=== PATIENT | male | born 1990 | race Caucasian/White ===

== ENCOUNTER → 2019-11-27 13:54 | Outpatient (CLI) | payer OTHER, SELFPAY ==
[2015-06-12 00:54] VITALS: BMI 30.1
[2019-11-27 17:44] LABS: Absolute Lymphocyte Count 3.22 X10^3/uL (0.83-4.51); Absolute Neutrophil Count 5.8 X10^3/uL (2.0-7.7); Basophil# 0.05 X10^3/uL; Basophil% 0.5 % (0-1); Eosinophil# 0.09 X10^3/uL; Eosinophils% 0.9 % (0-5); Hematocrit 49.8 % (40-54); Hemoglobin 16.2 g/dL (13.0-16.5); Lymphocyte # 3.22 X10^3/ul (4.0); Lymphocyte % 33.3 % (19-41); Mean Corp Hgb Conc 32.5 g/dL (32-36); Mean Corpuscular Hgb 27.9 pg (27.0-32.0); Mean Corpuscular Volume 85.9 fL (80-94); Mean Platelet Vol. 10.3 fl (6.2-12.0); Monocyte# 0.52 X10^3/uL; Monocyte% 5.4 % (0-10); NRBC Flagged by Analyzer 0 % (0-5); Neutrophil # 5.76 X10^3/uL (2.7-7.7); Neutrophil % 59.7 % (47-70); Platelet Count 292 K/mm3 (150-450); RBC Distribution Width CV 13.1 % (11.6-14.6); RBC Distribution Width SD 40.3 fl (35.1-43.9); White Blood Count 9.7 K/mm3 (4.4-11.0)
[2019-11-27 18:17] LABS: ALB/GLOB Ratio 1.3 RATIO (0.9-2.4); AST(SGOT) 29 U/L (15-37); Alanine Aminotransfer ALT/SGPT 67 U/L (16-61); Albumin, Serum 4.3 g/dL (3.2-5.0); Alkaline Phosphatase 69 U/L (45-117); Anion Gap 8 (5-15); BUN 17 mg/dL (7-18); BUN/Creat Ratio 19.6 RATIO (10-20); Calcium,Total 9.1 mg/dL (8.5-10.1); Chloride 102 mmol/L (98-107); Cholesterol 232 mg/dL (200); Creatinine, Serum 0.87 mg/dL (0.70-1.30); EST Glomerular Filtration Rate 111 mL/min (>60); Est Glom Filt Rate - Afr Amer 134 mL/min (>60); Globulin 3.4 g/dL (2.2-4.2); Glucose 164 mg/dL (74-106); High Density Lipoprotein 33 mg/dL; Lipase 130 U/L (73-393); Potassium 3.9 mmol/L (3.5-5.1); Protein, Total 7.7 g/dL (6.4-8.2); Sodium Level 138 mmol/L (136-145); Thyroid Stim Hormone (TSH) 1.14 uIU/mL (0.358-3.74); Triglycerides 224 mg/dL; Very Low Density Lipoprotein 45 mg/dL (5-40)
[2019-11-29 20:07] LABS: Endomysial Antibody IgA Negative (Negative)
[2019-11-30 01:44] LABS: Deamidated Gliadin IgA 2 units (0-19); Deamidated Gliadin IgG 2 units (0-19); Immunoglobulin A 203 mg/dL (90-386); t-Transglutaminase IgA <2 U/mL (0-3)
== END ==
PROVIDERS: PCP Family Medicine; Referring Provider Family Medicine; Visit Provider Family Medicine
DX: E11.65 Type 2 diabetes mellitus with hyperglycemia (principal); R19.7 Diarrhea, unspecified
CPT/HCPCS: 36415; 80053; 80061; 82784; 83516; 83690; 84443; 85025; 86255

== ENCOUNTER 2019-12-19 08:32 | Outpatient (RCR) | payer OTHER, SELFPAY | END 2019-12-19 23:59 | disposition home or self-care (01) | LOC: DC 08:32 | PROVIDERS: PCP Family Medicine; Visit Provider Family Medicine | DX: Z71.3 Dietary counseling and surveillance (principal); E11.65 Type 2 diabetes mellitus with hyperglycemia | CPT/HCPCS: G0108 ==

== ENCOUNTER → 2019-12-26 11:21 | Outpatient (CLI) | payer OTHER, SELFPAY ==
[2015-06-12 00:54] VITALS: BMI 30.1
[2019-12-26 12:50] LABS: Cholesterol 164 mg/dL (200); High Density Lipoprotein 37 mg/dL; Triglycerides 120 mg/dL; Very Low Density Lipoprotein 24 mg/dL (5-40)
== END ==
PROVIDERS: PCP Family Medicine; Referring Provider Family Medicine; Visit Provider Family Medicine
DX: Z00.00 Encounter for general adult medical examination without abnormal findings (principal)
CPT/HCPCS: 36415; 80061

== ENCOUNTER → 2020-04-11 10:39 | Outpatient (CLI) | payer OTHER, SELFPAY ==
[2015-06-12 00:54] VITALS: BMI 30.1
[2020-04-11 13:23] LABS: Anion Gap 9 (5-15); BUN 19 mg/dL (7-18); BUN/Creat Ratio 24.3 RATIO (10-20); Calcium,Total 9.2 mg/dL (8.5-10.1); Chloride 106 mmol/L (98-107); Cholesterol 151 mg/dL (200); Creatinine, Serum 0.78 mg/dL (0.70-1.30); EST Glomerular Filtration Rate 125 mL/min (>60); Est Glom Filt Rate - Afr Amer 151 mL/min (>60); Glucose 99 mg/dL (74-106); High Density Lipoprotein 38 mg/dL; Potassium 3.7 mmol/L (3.5-5.1); Sodium Level 140 mmol/L (136-145); Triglycerides 158 mg/dL; Very Low Density Lipoprotein 32 mg/dL (5-40)
== END ==
PROVIDERS: PCP Family Medicine; Referring Provider Family Medicine; Visit Provider Family Medicine
DX: E11.65 Type 2 diabetes mellitus with hyperglycemia (principal)
CPT/HCPCS: 36415; 80048; 80061

== ENCOUNTER → 2021-01-22 10:11 | Outpatient (CLI) | payer OTHER, SELFPAY ==
[2021-01-22 12:38] LABS: Anion Gap 8 (5-15); BUN 14 mg/dL (7-18); BUN/Creat Ratio 20.2 RATIO (10-20); Chloride 102 mmol/L (98-107); Cholesterol 195 mg/dL (200); Creatinine, Serum 0.69 mg/dL (0.70-1.30); EST Glomerular Filtration Rate 142 mL/min (>60); Est Glom Filt Rate - Afr Amer 172 mL/min (>60); Glucose 88 mg/dL (74-106); High Density Lipoprotein 42 mg/dL; Potassium 3.8 mmol/L (3.5-5.1); Sodium Level 139 mmol/L (136-145); Triglycerides 88 mg/dL; Very Low Density Lipoprotein 18 mg/dL (5-40)
[2021-01-22 12:42] LABS: Hemoglobin A1c 5.3 % (3.8-5.6)
== END ==
PROVIDERS: PCP Family Medicine; Referring Provider Family Medicine; Visit Provider Family Medicine
DX: E11.65 Type 2 diabetes mellitus with hyperglycemia (principal)
CPT/HCPCS: 36415; 80048; 80061; 83036

== ENCOUNTER → 2021-03-03 15:07 | Outpatient (CLI) | payer OTHER, SELFPAY | PROVIDERS: PCP Family Medicine; Referring Provider Family Medicine; Visit Provider Registered Nurse | DX: J06.9 Acute upper respiratory infection, unspecified (principal) | CPT/HCPCS: 87633; 87635; U0005; U0003 ==

== ENCOUNTER → 2021-03-11 | Outpatient (CLI) | payer OTHER, SELFPAY | END | disposition home or self-care (01) | LOC: LABSPEC 17:22 | PROVIDERS: PCP Family Medicine; Visit Provider Nurse Practitioner Family | DX: U07.1 COVID-19 (principal) | CPT/HCPCS: 87635; U0005; U0003 ==

== ENCOUNTER → 2021-07-22 | Outpatient (CLI) | payer OTHER, SELFPAY ==
[2021-07-22 13:06] LABS: Anion Gap 6 (5-15); BUN 18 mg/dL (7-18); Calcium,Total 8.4 mg/dL (8.5-10.1); Chloride 107 mmol/L (98-107); Cholesterol 183 mg/dL (200); EST Glomerular Filtration Rate 93 mL/min (>60); Est Glom Filt Rate - Afr Amer 113 mL/min (>60); Glucose 124 mg/dL (74-106); High Density Lipoprotein 35 mg/dL; Potassium 3.7 mmol/L (3.5-5.1); Sodium Level 141 mmol/L (136-145); Triglycerides 63 mg/dL; Very Low Density Lipoprotein 13 mg/dL (5-40)
== END | disposition home or self-care (01) ==
LOC: MFPLAB 09:34
PROVIDERS: PCP Family Medicine; Visit Provider Family Medicine
DX: E11.9 Type 2 diabetes mellitus without complications (principal)
CPT/HCPCS: 36415; 80048; 80061

== ENCOUNTER 2021-10-23 07:30 | Outpatient (RCR) | payer OTHER, SELFPAY ==
--- NOTE | 2021-09-23 07:49 | HP.PTEVAL ---
Patient's Visit Information JOCELINE FALCON is a 31 year old M referred to Physical Therapy by MARTIN Kelly with a diagnosis of Lumbar Strain. Date of Evaluation: 09/23/21 Physical Therapist: Rama Puga DPT - Visit Plan Frequency: 3x /Week Duration: 4 Weeks Plan: Focus on LE and Core strength/stabilization in a neutral spine with progression to lifting mechanics for employment- [place] of modality. HEP Given IE: TA Contraction and Hamstring Stretch 90/90 and Postural Education - Subjective About a 6 weeks ago he was lifting things at work- went to [facility]- healed up within a weak and was having no problems. Last week it started building slowly and he was taking lots of Tylenol and Ibuprofen and it continued to get worse. He has been on vacation this week and has some pain but its not as bad. 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 Pain is located in the lower right back around the belt line and a little lower. When he first starts to bed its painful but then its a dull constant tingling. Worst: 6/10 Agg: lifting- work. Eases: pain medication Best:0/10- doing nothing. The ergonomics of his car seat really bother him. Pain does radiate down the right leg to his toes when its really bad- N/T in the toes- pain is localized to the hip. They did an x-ray the first time but no MRI. No loss or change in bowel or bladder. [facility] has restricted him to #10- they will have light duty for him-goes back to work on Tuesday. Sleep: not currently- back and side sleeper. He has never had back issues before. He is not very active outside of work. No current exercise program. Wants to get on an exercise program but is nervous of the pains. PMHx: Pre DM, high cholesterol. Meds: Metformin, Simvastatin, Flexural (not taking it) - Objective Posture: FH, RS- can correct but does not maintain. Gait: no deviation noted good arm swing and trunk rotation. HR/TR: able without UE A. SLS: 10 sec with moderate sway and increased hip drop. ROM: WFL in all planes- pa in with Side bend right, extension and 30 degrees of forward flexion. Sensation: Decreased sensation in right LE with exception of top of foot. Reflex: Patellar 2+. Strength: Core: fair minus, Hip: 4/5- no pain with exception of ER reports cramping and significant pain, Knee: 5/5 Ankle: 5/5. Flex: HS: severe, Gastroc: severe, Piriformis: moderate. Special Test: Prone lying: increases symptoms - Special Tests L/S Slump test right side: Positive L/S Left Straight Leg Raise: Negative L/S Right Straight Leg Raise: Positive - Balance/Special Test Scores Oswestry Low Back Score: 4 - Goals Goal 1:: Patient will be I with HEP and progression Goal Time Frame: 4-6 Weeks Goal 2:: Patient will maintain proper posture t/o tx session to demo increased core s/s Goal Time Frame: 4-6 Weeks Goal 3:: Patient will report no radicular s/s for 1 week Goal Time Frame: 4-6 Weeks Goal 4:: Patient will report 80% improvement Goal Time Frame: 4-6 Weeks - Rehabilitation Potential Physical Therapy Diagnosis: Patient presents with hypomobility- he has decreased pain free ROM, LE and core strength/stabilization, flex and muscular endurance leading to poor posture, lifting mechanics and pain with ADL's. - Anticipated Interventions Patient/Client Instruction: Educate patient on: Benefits of Fitness Program Therapeutic Exercise to Include: Strength training, Endurance training, Balance training, Coordination, Agility training, Body mechanics, Postural training, Flexibilty training, Gait and locomotor training, Neuromotor development, Dynamic Lumbar Stabilization, Scapular Strength/Stabilization For the Purpose of:: To improve muscle performance and motor function TENS: Yes Cryotherapy (ice pack, ice massage): Yes Thermo therapy (hot pack): Yes Ultrasound (thermal/non thermal): Yes Thank you for the opportunity to evaluate your patient. For Medicare and Medicare HMO plans, please review the plan of care and approve it. It will need to be FAXED BACK to us at [phone] for Medicare purposes. For Medicare only, by signing this I certify the plan of care. Please let me know if there are questions or concerns regarding this plan of care. Physician Signature: Date:
--- NOTE | 2021-10-23 08:17 | HP.PTDCSUM ---
It has been my pleasure to treat JOCELINE FALCON referred by MARTIN Kelly, with the diagnosis of Lumbar Strain for a total of 9 visit(s). Discharge Date: Please see the following information for a summary of their discharge status. Subjective: Patient reports that he has been released back to work- he has no increase in sharp pains but he does have dull pains- able to recognize and change positions before it hurts to bad. He is trying to modify his work as much as possible. He does not feel that he needs to continue PT- but he has learned a lot of exercises that he can continue. LBP Pain Intensity (Out of 10): 0 % Improvement: 90 Objective/Function: Posture: Fair throughout. Gait: no deviation noted good arm swing and trunk rotation. HR/TR: able without UE A. SLS: 30 sec. ROM: WFL in all planes-no pain. Sensation: WLF Reflex: Patellar 2+. Strength: Core: fair, Hip: 4+/5- no pain with exception of ER reports cramping and mild pain, Knee: 5/5 Ankle: 5/5. Flex: HS: severe, Gastroc: severe, Piriformis: moderate. - Special Tests. L/S Slump test right side: Positive. L/S Left Straight Leg Raise: Negative. L/S Right Straight Leg Raise: Positive Goal 1:: Patient will be I with HEP and progression Goal Progress: Goal Met Goal 2:: Patient will maintain proper posture t/o tx session to demo increased core s/s Goal Progress: Progressing Goal 3:: Patient will report no radicular s/s for 1 week Goal Progress: Goal Met Goal 4:: Patient will report 80% improvement Goal Progress: Goal Met Plan: Focus on LE and Core strength/stabilization in a neutral spine with progression to lifting mechanics for employment- [place] of modality If there are questions or concerns regarding this patient's physical therapy, please feel free to call me at [phone]. Thank you for the referral of this patient. Sincerely, Rama Puga, DPT Balance/Gait/Functional tests - Balance/Special Test Scores Oswestry Low Back Score: 3
== END 2021-10-23 09:24 | disposition home or self-care (01) ==
LOC: PT 07:30
PROVIDERS: PCP Family Medicine; Referring Provider Physician Assistant; Visit Provider Physician Assistant
DX: S39.012D Strain of muscle, fascia and tendon of lower back, subsequent encounter (principal); X58.XXXD Exposure to other specified factors, subsequent encounter
CPT/HCPCS: 97014; 97110; 97162; 97164; G0283

== ENCOUNTER → 2022-01-20 | Outpatient (CLI) | payer OTHER, SELFPAY ==
[2022-01-20 12:30] LABS: Anion Gap 4 (5-15); BUN 15 mg/dL (7-18); Calcium,Total 9.3 mg/dL (8.5-10.1); Chloride 104 mmol/L (98-107); Cholesterol 191 mg/dL (200); Creatinine, Serum 0.83 mg/dL (0.70-1.30); EST Glomerular Filtration Rate 115 mL/min (>60); Est Glom Filt Rate - Afr Amer 139 mL/min (>60); Glucose 122 mg/dL (74-106); High Density Lipoprotein 40 mg/dL; Potassium 5.4 mmol/L (3.5-5.1); Sodium Level 137 mmol/L (136-145); Triglycerides 130 mg/dL; Very Low Density Lipoprotein 26 mg/dL (5-40)
== END | disposition home or self-care (01) ==
LOC: MFPLAB 10:32
PROVIDERS: PCP Family Medicine; Referring Provider Family Medicine; Visit Provider Family Medicine
DX: E11.9 Type 2 diabetes mellitus without complications (principal)
CPT/HCPCS: 36415; 80048; 80061

== ENCOUNTER → 2022-07-21 | Outpatient (CLI) | payer OTHER, SELFPAY ==
[2022-07-21 12:47] LABS: Anion Gap 4 (5-15); BUN 22 mg/dL (7-18); BUN/Creat Ratio 26.6 RATIO (10-20); Calcium,Total 8.9 mg/dL (8.5-10.1); Chloride 107 mmol/L (98-107); Cholesterol 216 mg/dL (200); Creatinine, Serum 0.83 mg/dL (0.70-1.30); EST Glomerular Filtration Rate 115 mL/min (>60); Est Glom Filt Rate - Afr Amer 139 mL/min (>60); Glucose 127 mg/dL (74-106); High Density Lipoprotein 35 mg/dL; Potassium 4.1 mmol/L (3.5-5.1); Sodium Level 138 mmol/L (136-145); Triglycerides 112 mg/dL; Very Low Density Lipoprotein 22 mg/dL (5-40)
== END | disposition home or self-care (01) ==
LOC: MFPLAB 09:29
PROVIDERS: PCP Family Medicine; Visit Provider Family Medicine
DX: E11.9 Type 2 diabetes mellitus without complications (principal)
CPT/HCPCS: 36415; 80048; 80061

== ENCOUNTER → 2022-12-24 | Outpatient (CLI) | payer OTHER, SELFPAY ==
--- NOTE | 2022-12-24 13:38 | RAD_ITS ---
INDICATION: DEGENERATIVE ARTHRITIS EXAMINATION/TECHNIQUE: X-RAY - XR Spine Lumbar 2 or 3 Views COMPARISON: FINDINGS: VERTEBRAE: Preserved vertebral body height. No fracture. No spondylolisthesis. Preservation of the normal lumbar lordosis. No significant facet arthropathy. DISCS: Disc spaces are maintained. INCLUDED ABDOMEN: Included bowel gas pattern is non-obstructive. RAD/Lumbar Spine 2 or 3 Views IMPRESSION: No evidence of lumbar spinal fracture or spondylolisthesis. Electronically Signed: David Ojeda MD at 11:20 EDT ,
--- NOTE | 2022-12-24 13:40 | RAD_ITS ---
EXAM: XR RIGHT FOOT COMPLETE, 3 OR MORE VIEWS CLINICAL INDICATION: right great toe injury TECHNIQUE: Frontal, lateral and oblique views of the right foot. COMPARISON: No relevant prior studies available. FINDINGS: BONES/JOINTS: Fracture at the base of the first proximal phalanx apparently with intra-articular extension. Preservation of the joint space. No sclerotic or destructive changes observed. SOFT TISSUES: Soft tissue swelling of the great toe. No radiopaque foreign body. RAD/Foot min 3 Views IMPRESSION: Fracture at the base of the first proximal phalanx apparently with intra-articular extension. Electronically Signed: Sixto Mcclain DO at 23:48 EDT ,
== END | disposition home or self-care (01) ==
LOC: MTRAD 13:35
PROVIDERS: PCP Family Medicine; Referring Provider Family Medicine; Visit Provider Family Medicine
DX: S90.921A Unspecified superficial injury of right foot, initial encounter (principal); M47.9 Spondylosis, unspecified
CPT/HCPCS: 72100; 73630

== ENCOUNTER → 2023-01-05 | Outpatient (CLI) | payer OTHER, SELFPAY ==
[2023-01-05 13:20] LABS: ALB/GLOB Ratio 1.3 RATIO (0.9-2.4); AST(SGOT) 18 U/L (15-37); Alanine Aminotransfer ALT/SGPT 46 U/L (16-61); Albumin, Serum 4.3 g/dL (3.2-5.0); Alkaline Phosphatase 68 U/L (45-117); Anion Gap 4 (5-15); BUN 16 mg/dL (7-18); BUN/Creat Ratio 19.5 RATIO (10-20); Calcium,Total 9.6 mg/dL (8.5-10.1); Chloride 106 mmol/L (98-107); Cholesterol 232 mg/dL (200); Creatinine, Serum 0.82 mg/dL (0.70-1.30); EST Glomerular Filtration Rate 116 mL/min (>60); Est Glom Filt Rate - Afr Amer 140 mL/min (>60); Globulin 3.4 g/dL (2.2-4.2); Glucose 141 mg/dL (74-106); High Density Lipoprotein 41 mg/dL; Potassium 4.7 mmol/L (3.5-5.1); Protein, Total 7.7 g/dL (6.4-8.2); Sodium Level 140 mmol/L (136-145); Triglycerides 149 mg/dL; Very Low Density Lipoprotein 30 mg/dL (5-40)
== END | disposition home or self-care (01) ==
LOC: MFPLAB 09:57
PROVIDERS: PCP Family Medicine; Visit Provider Family Medicine
DX: E11.69 Type 2 diabetes mellitus with other specified complication (principal)
CPT/HCPCS: 36415; 80053; 80061

== ENCOUNTER → 2023-01-08 | Outpatient (CLI) | payer OTHER, SELFPAY ==
--- NOTE | 2023-01-08 09:05 | MRI_ITS ---
INDICATION: right sided low back pain, radiculopathy rt leg EXAMINATION: MRI - MR Spine Lumbar W/O Contrast TECHNIQUE: Multiplanar and multisequence MR images of the lumbar spine. IV Contrast Dosage and Agent: None. COMPARISON: None. FINDINGS: VERTEBRAE: Vertebral body heights are preserved. Normal vertebral bodies and posterior elements. VERTEBRAL ALIGNMENT: No spondylolisthesis. There is preservation of the normal lumbar lordosis. CORD: Normal position and signal intensity of the conus medullaris. L1/L2: Normal disc height and morphology. Normal spinal canal, lateral recesses and neuroforamina. L2/L3: Normal disc height and morphology. Normal spinal canal, lateral recesses and neuroforamina. L3/L4: Normal disc height and morphology. Normal spinal canal, lateral recesses and neuroforamina. L4/L5: Moderate disc desiccation, small central disc herniation, mild bilateral facet arthropathy, mild bilateral neural foraminal encroachment. L5/S1: Normal disc height and morphology. Normal spinal canal, lateral recesses and neuroforamina. SOFT TISSUES: Unremarkable. MRI/Spine Lumbar (Routine) IMPRESSION: Small central disc herniation L4-5. Additional findings above. Electronically Signed: David Ojeda MD at 12:08 EDT ,
== END | disposition home or self-care (01) ==
PROVIDERS: PCP Family Medicine; Referring Provider Orthopaedic Surgery; Visit Provider Orthopaedic Surgery
DX: M51.27 Other intervertebral disc displacement, lumbosacral region (principal)
CPT/HCPCS: 72148

== ENCOUNTER → 2023-07-06 | Outpatient (CLI) | payer OTHER, SELFPAY ==
[2023-07-06 12:53] LABS: Absolute Lymphocyte Count 2.56 X10^3/uL (0.83-4.51); Absolute Neutrophil Count 5.1 X10^3/uL (2.0-7.7); Basophil# 0.05 X10^3/uL; Basophil% 0.6 % (0-1); Eosinophil# 0.07 X10^3/uL; Eosinophils% 0.8 % (0-5); Hematocrit 47.9 % (40-54); Hemoglobin 15.7 g/dL (13.0-16.5); Lymphocyte # 2.56 X10^3/ul (0.83-4.51); Lymphocyte % 30.7 % (19-41); Mean Corp Hgb Conc 32.8 g/dL (32-36); Mean Corpuscular Hgb 28.8 pg (27.0-32.0); Mean Corpuscular Volume 87.9 fL (80-94); Mean Platelet Vol. 10.4 fl (6.2-12.0); Monocyte# 0.52 X10^3/uL; Monocyte% 6.2 % (0-10); NRBC Flagged by Analyzer 0 % (0-5); Neutrophil # 5.11 X10^3/uL (2.7-7.7); Neutrophil % 61.5 % (47-70); Platelet Count 262 K/mm3 (150-450); RBC Distribution Width CV 13.2 % (11.6-14.6); RBC Distribution Width SD 42.3 fl (35.1-43.9); Red Blood Count 5.45 M/mm3 (4.6-6.2); White Blood Count 8.3 K/mm3 (4.4-11.0)
[2023-07-06 13:38] LABS: ALB/GLOB Ratio 1.4 RATIO (0.9-2.4); AST(SGOT) 14 U/L (15-37); Alanine Aminotransfer ALT/SGPT 31 U/L (16-61); Albumin, Serum 4.2 g/dL (3.2-5.0); Alkaline Phosphatase 55 U/L (45-117); Anion Gap 4 (5-15); BUN 13 mg/dL (7-18); BUN/Creat Ratio 15.3 RATIO (10-20); Chloride 109 mmol/L (98-107); Cholesterol 190 mg/dL (200); Creatinine, Serum 0.85 mg/dL (0.70-1.30); EST Glomerular Filtration Rate 110 mL/min (>60); Est Glom Filt Rate - Afr Amer 134 mL/min (>60); Globulin 3.1 g/dL (2.2-4.2); Glucose 146 mg/dL (74-106); High Density Lipoprotein 31 mg/dL; Potassium 4.3 mmol/L (3.5-5.1); Protein, Total 7.3 g/dL (6.4-8.2); Sodium Level 141 mmol/L (136-145); Triglycerides 124 mg/dL; Very Low Density Lipoprotein 25 mg/dL (5-40)
== END | disposition home or self-care (01) ==
LOC: MFPLAB 10:04
PROVIDERS: PCP Family Medicine; Visit Provider Family Medicine
DX: E11.69 Type 2 diabetes mellitus with other specified complication (principal); M54.9 Dorsalgia, unspecified
CPT/HCPCS: 36415; 80053; 80061; 83036; 85025

== ENCOUNTER → 2023-07-08 | Outpatient (CLI) | payer OTHER, SELFPAY ==
[2023-07-08 15:23] LABS: Microalbumin,Random Urine 13.6 mg/L (NO RANGE EST.); Microalbumin:Creatinine Ratio 10.4 mg/g CRE (<30 mg/g CRE)
== END | disposition home or self-care (01) ==
LOC: MFPLAB 10:20
PROVIDERS: PCP Family Medicine; Visit Provider Family Medicine
DX: E11.69 Type 2 diabetes mellitus with other specified complication (principal); M54.9 Dorsalgia, unspecified
CPT/HCPCS: 82043; 82570

== ENCOUNTER 2023-07-19 05:33 | Inpatient (IN) | payer OTHER, SELFPAY ==
--- NOTE | 2023-07-08 07:05 | EKG12_ITS ---
Test Reason : PRE OP Blood Pressure : / mmHG Vent. Rate : 068 BPM Atrial Rate : 068 BPM P-R Int : 156 ms QRS Dur : 084 ms QT Int : 378 ms P-R-T Axes : 029 018 015 degrees QTc Int : 401 ms Normal sinus rhythm Normal ECG Confirmed by SANKET GILLIAM, BALTA ([id number]), graphic editor ASTRID DARLING ([id number]) on 07/11/2023 10:35:52 AM Referred By: Destin Delacruz Confirmed By:RAHAT COLES MD
[2023-07-08 08:22] LABS: Magnesium 2.4 mg/dL (1.6-2.6)
[2023-07-08 09:11] LABS: HIV - WCH Non-Reactive (Nonreactive); Hepatitis B Surface Antibody Non-Reactive; Hepatitis C Antibody Non-Reactive (Nonreactive)
[2023-07-09 07:09] LABS: Hepatitis A AB, Total Negative (Negative)
--- NOTE | 2023-07-15 13:10 | HP.PCM_ITS ---
History and Physical Add?Addendum [facility] Date of Service: 06/10/23 MR#: [id number] Acct: [id number] Name: JOCELINE FALCON Rep #: [id number] : 1990 Provider: Dr. Destin Delacruz DO Age/Sex: 33/M Location: [facility] [place] Status: Signed Intake Vital Signs 12/29/2307:30 Height 5 ft 10 in Intake Visit Reasons: LUMBAR SPINE Chief Complaint: low back Is patient in pain?: Yes (Low back) Pain scale (1-10): 4 Allergies Environmental Allergies: Uncoded [metal] Adverse Reaction (Verified 06/10/23 13:36) Rash Medications multivitamin 1 tab PO DAILY 12/28/22 [History Confirmed 06/10/23] metformin 500 mg tablet 500 mg PO 12/31/22 [History Confirmed 06/10/23] rosuvastatin 20 mg tablet 20 mg PO DAILY 02/11/23 [History Confirmed 06/10/23] meloxicam 7.5 mg tablet 7.5 mg PO QDAY 06/10/23 [History Confirmed 06/10/23] [facility] Medical History (Updated 06/10/23 @ 14:[address] Destin Delacruz DO) Closed fracture of one or more phalanges of right foot Lumbar strain Social History household members: family Smoking Status: Never smoker alcohol intake: never HPI LUMBAR SPINE Details: This documentation accurately reflects the service provided and the decisions made by me, Dr. Destin Delacruz DO 06/10/23 1329. Part of today?s visit was documented by Becka, acting as scribe. JOCELINE FALCON is a 33 year old M here today for follow up on low back pain. He complains of dull low back pain that does not go away. He is also experiencing right sided sciatic pain, numbness and tingling. He did see Dr. Lim and had a second low back injection at L4-L5 about four weeks ago. He did not do the sciatic injections this time he wanted him to do PT. He has been doing and working out 2-4 times per week. He reports no relief with this. He would like to discuss further options including surgery. He reports pain daily that is baseline 06/21. Joceline has been in therapy now for over a month and it is not helping his back at all in fact it actually making it worse. But has been doing his stretches and trying to work out. The pain in the low back has been unbearable. He states that when the pain is bad he goes to an 9/10 in severity. When its good the baseline is about 4/10 in severity. Unfortunately the 9 over 10 days are getting more and more frequent. He wishes to have something done permanently as he states that he cannot continue to live the way he does. On examination he has hardly any pain at all with extension but a lot of pain with flexion as we load the L4-5 disc. Neurologically he is intact with good motor strength of all the major muscle groups of both lower extremities. He has no long tract signs. I went back over his MRI scan that demonstrates the annular tear L4-5 and the desiccation of said disc. Luckily all his other discs are perfectly normal. We will schedule him for a 360 degree fusion at the L4-5 level. We will schedule him for 18 July. I will see him about 1 week before the surgery at preop here in the office. Coding Level of Care Code Off vis,est,level 3 Diagnoses Herniated nucleus pulposus, L4-5 M51.26
[2023-07-19] VITALS (12 sets, daily range): BP systolic 118–141; BP diastolic 64–91; PULSE 85–106; RESP 14–18; TEMP 36.6–37.4; O2SAT 93–100; BMI 31.3; BMI 31.2
--- NOTE | 2023-07-19 | DISC_PTH ---
PATIENT: JOCELINE FALCON LOC: [facility] U#:[id number] AGE/SX: 33/M ROOM: VT312 RE07/19/[address]: Dr. Belén Flores DO : 1990 BED: 1 DIS: 07/22/2023 SPEC #: [id number] RECD: 07/19/23 16:06 STATUS: FELICE REHAN #: [id number] RAMYA: 07/19/23 00:[address]: Destin Delacruz DEPT: SURGICAL PATHOLOGY RECD BY: Mikael Wright ENTERED: 07/20/23 07:49 SP TYPE: DISC OTHR DR: DO Dr. Sydni Sotomayor MD Dr. Paul Nielsen, MD Tissues: Intervertebral disc, NOS Procedures: Surgery Specimen Level III HEADER OPERATION: ERAS, 360 lumbar fusion L4-5 PRE-OP DIAGNOSIS: Herniated nucleus pulposus, L4-5 TISSUE SUBMITTED: L4-L5 disc MICROSCOPIC DIAGNOSIS L4-L5 disc: Fragments of fibrocartilaginous tissue with degenerative changes and bone. RACHEL/ 07/21/23 MICROSCOPIC DESCRIPTION Slides are reviewed. GROSS DESCRIPTION Received in fixative is one container labeled with the patient's name and designated L4-L5 disc. The specimen consists of multiple pieces of mcconnell indurated tissue measuring in aggregate 6.5 x 6.0 x 2.5cm. The largest piece measures 3.0cm in greatest dimension. Director [employer] tissue is submitted in two cassettes. RACHEL/ 07/20/2023 TC:5 CPT:98776
[2023-07-19] MEDS: Lactated Ringers 1,000 ML 15 ML IV (06:15)
[2023-07-19] MEDS: Acetaminophen 500 MG Tablet 1000 MG PO ×3 (06:16→21:52)
[2023-07-19] MEDS: Magnesium 1 GM over 15 mins IV (06:16)
[2023-07-19 07:09] LABS: Bedside Glucose 163 mg/dL (74-106)
[2023-07-19] MEDS: Cefazolin 2 GM in 0.9% Normal Saline (100mL Bag) 100 ML IV ×2 (07:50→11:52)
[2023-07-19] MEDS: Heparin 10,000 UNITS/10 ML Vial 10000 UNITS (08:50)
--- NOTE | 2023-07-19 10:20 | RAD_ITS ---
STUDY: X-RAY - LUMBAR SPINE REASON FOR EXAM: Male, 33 years old. 360 FUSION L4-5 TECHNIQUE: Single lateral view(s) of the lumbar spine were obtained. COMPARISON: None FINDINGS: The localization enhancement is seen anterior to the L4-L5 disc space level. RAD/Spine 1 View Any Level IMPRESSION: The localization instrument is seen anterior to the L4-L5 disc space level. Electronically Signed: Barrett Weber MD at 14:59 EDT ,
--- NOTE | 2023-07-19 11:25 | RAD_ITS ---
STUDY: X-RAY - LUMBAR SPINE REASON FOR EXAM: Male, 33 years old. 360 fusion L4-5 TECHNIQUE: One lateral view(s) of the lumbar spine were obtained. COMPARISON: None FINDINGS: The patient is status post anterior fusion at the L4-L5 level with prosthetic disc placement. RAD/Spine 1 View Any Level IMPRESSION: Status post anterior fusion at the L4-L5 level with prosthetic disc placement. Electronically Signed: Barrett Weber MD at 15:00 EDT ,
--- NOTE | 2023-07-19 11:30 | PCM.OPRPT ---
Report of Operation Description of Surgical Findings:: Preoperative diagnosis: Herniated disc with disc disruption syndrome L4-5 Postoperative diagnosis: Same Procedures: #1 anterior lumbar interbody fusion L4-5 CPT code 19125 #2 anterior spine plate L4-5 CPT code 03367/59 #3 insertion of anterior lumbar cage CPT code 44653 #4 bone marrow aspirate from right iliac crest CPT code 17267 #5 spongy bone allograft L4-5 CPT code 73928 Co-surgeons: Dr. Delacruz and Dr. Dominguez certified first assistant: Kirk from surgery CLIENT SOLUTIONS SPECIALIST Anesthesia: General endotracheal by [facility] EBL: 80 cc Drains: None Complications: None Procedure: Patient was placed in the supine position on the operating table. He was then placed under general endotracheal anesthesia. A Jay catheter was inserted. Neuromonitoring placed her leads on the patient. The abdomen was then prepped and draped in standard fashion. Through a small puncture incision placed a Jamshidi needle over the ASIS on the right side tamped into place and obtained 60 cc of bone marrow aspirate from the patient's crest. This was given to the tech in the room she was able to separate the stem cells from all the other cells via her send special centrifuge. The cells were concentrated about 10 times and given back to us in about 5 cc. The surgical approach is then described in Dr. Dominguez's operative summary. Once he had good exposure at L4-5, with x-ray confirmation, I removed the anterior annulus with a 10 blade. I then removed a nuclear strip when within the disc base with pituitary rongeurs bowl curettes and ring curettes. This was a long process I was finally able to remove most of the disc needed for a smaller cage. Using the ring curettes I removed all the cartilage off both endplates. I then cauterized the anterior longitudinal ligament above and below the disc space to make room for a plate. Our measurements were taken for a cage. We used the trials for that we found that a 14 mm small cage would be the right one for him. I then used first a 12 mm broach followed by 14 mm broach to repeatedly broach the endplates into bleeding endplates. The cage was then filled with spongy allograft it was then soaked in the patient's own concentrated stem cells and it was tamped into place and countersunk a couple of millimeters. A 27 mm plate was then centered and with me holding it in place Dr. Dominguez I used the awl to punch a hole first and do L4 followed by the insertion about 30 mm self-tapping screw. He is then put 1 diagonally across from it in the same fashion at the top of L5. He then used the awl to punch the next 2 holes and entered with 2 more 30 mm screws. The locking mechanisms were then activated. An amniotic membrane patch was placed directly over to prevent adhesions to the surrounding vessels. An intraoperative x-ray was taken that demonstrated excellent position of the plate the screws and the cage. The closure is then described in Dr. Dominguez's operative summary. This is the end of operative summary on Felix Pepper. This is Dr. Delacruz dictating.
--- NOTE | 2023-07-19 11:33 | RAD_ITS ---
STUDY: X-RAY - LUMBAR SPINE REASON FOR EXAM: Male, 33 years old. Lumbar 360 L4-5 TECHNIQUE: 1 view(s) of the lumbar spine were obtained. COMPARISON: None FINDINGS: The patient is status post anterior fusion at the L4-L5 level with prosthetic disc placement. The localization instrument is seen posterior to the L4-L5 level. RAD/Spine 1 View Any Level IMPRESSION: Status post anterior fusion at the L4-L5 level with prosthetic disc placement. The localization instrument is seen posterior to the L4-L5 level. Electronically Signed: Barrett Weber MD at 13:26 EDT ,
[2023-07-19] MEDS: THROMBIN (RECOMBINANT) 20,000 UNIT VIAL 20000 UNIT TOPICAL (13:13)
--- NOTE | 2023-07-19 14:27 | PCM.OPRPT ---
Report of Operation Description of Surgical Findings:: Preoperative diagnosis: Disc disruption syndrome L4-5 Postoperative diagnosis: Same Procedures: #1 posterior fusion L4-5 CPT code 40215 #2 internal fixation L4-5 CPT code 01119 #3 allograft bone L4-5 CPT code 41526 Surgeon: Dr. Delacruz Coastal Tug Mate: Yelena from surgery [employer] FOREMAN Anesthesia: General endotracheal by [facility] EBL: 60 cc Drains: None Complications: None Procedure: Once the anterior surgery was completely finished and the abdomen closed by Dr. Dominguez we then moved the patient onto the prone position on the Valeriy frame. After appropriate positioning with care to protect his bony prominences his genitalia his ulnar nerves of both elbows the brachial plexus bilaterally and the cervical spine and facial features the back was prepped and draped standard fashion. I then made a longitudinal incision centered over L4-5. Subcutaneous tissues were incised length of skin incision. I then elevated the paravertebral muscles on the right side off the lamina of L4 and the lamina of L5. An intraoperative x-ray was taken that confirmed that we were at the proper level. I then moved to the other side of the table and elevated the paravertebral muscles off the same lamina that is L4 and L5 on the left side I then put the self-retaining super slide retractors in place. I cauterized all soft tissues off of the lamina of 4 on both sides of the lamina 5 on both sides. The interspinous ligament between L4 and 5 was removed with double-action rongeurs and cautery. Measurements were taken for the spacer. We decided on a 12 mm spacer. I used the bur to bur the lamina of 4 on both sides of the lamina 5 on both sides. SPARC allograft was then placed over the lamina on both sides. The spacer itself was then tamped into place. Internal fixation device was then attached secured and the locking mechanisms activated. Note in the course of the case we thoroughly irrigated with copious amounts of sterile saline on a regular basis. I then closed the lumbar fascia using [id number] suture with #1 Vicryl followed by closure of subcutaneous tissues in layers with 0 Vicryl and 2-0 Vicryl in interrupted fashion and finally the skin was approximated using skin clips. Sterile dressings were applied. The patient was then recovered in the OR moved to his hospital bed and taken to recovery in satisfactory condition. This the end of operative summary on Felix Pepper. This is Dr. Delacruz dictating.
[2023-07-19 15:09] LABS: Bedside Glucose 185 mg/dL (74-106)
[2023-07-19] MEDS: Insulin Lispro 100 UNIT/ML INSULN.PEN SC ×2 (15:28→21:52)
--- NOTE | 2023-07-19 16:02 | OP.PCM_ITS ---
Report of Operation Date of Procedure: 07/19/23
--- NOTE | 2023-07-19 16:02 | PCM.OPRPT ---
Report of Operation Date of Procedure: 07/19/23 Pre-Operative Diagnosis: Herniated disc with disc disruption syndrome L4-5 Post-Operative Diagnosis: Same Surgery/Procedure Performed:: #1 anterior lumbar interbody fusion L4-5 CPT code 36045 #2 anterior spine plate L4-5 CPT code 82382/59 #3 insertion of anterior lumbar cage CPT code 48027 #4 bone marrow aspirate from right iliac crest CPT code 14381 #5 spongy bone allograft L4-5 CPT code 01722 Surgeon: Co-surgeon, Dr. Delacruz, Dr. Dominguez Type of Anesthesia: General Estimated Blood Loss (mL): 80 Description of Procedure: HPI: Patient is a 33-year-old male with herniated disc at the L4-L5 disc space who was evaluated by Dr. Delacruz and felt to be appropriate for anterior lumbar interbody fusion in addition to his posterior approach. Vascular surgery services were requested in order to perform exposure and mobilization of the great vessels of the abdomen and pelvis. Description of procedure: Upon obtaining informed consent and verification correct patient procedure site patient was taken to the operating where he was placed under general anesthesia. He was then positioned prepped and draped in usual sterile fashion and timeout performed. Bone marrow was first harvested from the right iliac crest and passed off the field for processing for use with the bone graft. Next transverse incision was made in the left lower quadrant and Bovie electrocautery was dissect down through the subcutaneous tissue to the level the fascia. Self-retaining retractors then put in position and the fascia incised transversely with counterincisions made inferior medially and superior laterally. The rectus muscle was then mobilized circumferentially with care taken to elevate the epigastric vessels with the musculature after which the rectus muscle was retracted medially. Blunt dissection was then used to develop a plane between the posterior aspect of the abdominal wall and the peritoneum mobilizing the peritoneum and its contents medially towards the midline. The posterior sheath was then incised vertically with Metzenbaum scissors and further mobilization of the peritoneum and its contents performed into the midline was reached. A wet lap sponge was then placed to maintain our position and the muscle then retracted laterally and the Syne frame self-retaining retractor brought in the field and positioned. The left iliac artery was then dissected free, mobilized and retracted laterally and the left iliac vein retracted medially. The iliolumbar vein was identified multiple branches feeding into a common trunk. The branches of the iliolumbar vein were then ligated individually with silk ties and medium clips and then divided. A 5-0 Prolene was then used to oversew the stump of the common trunk with satisfactory hemostasis noted at completion. The iliac vein was then further mobilized and retracted medially exposing the L4-L5 disc space. Once the iliac vein was fully mobilized and retracted the self-retaining retractors were then repositioned and the left common iliac artery also retracted medially along with the vein to gain adequate visualization of the L4-L5 disc space. At this point Dr. Delacruz scrubbed in and performed the discectomy and implantation of the cage and plate which she will dictate in more detail. After the fusion was completed the vessels were inspected and the iliac artery normal in appearance with palpable pulse throughout and the vein soft and compressible with no evidence of thrombus. The retractors were then withdrawn and the abdominal contents allowed to return to their [place] position. The fascia was then closed with strata fix suture followed by 2-0 Vicryl, 3-0 Vicryl, 4 Monocryl and Dermabond for the skin. At the conclusion of this portion the patient was flipped into prone position for second procedure which Dr. Delacruz will describe in his own dictation.
--- NOTE | 2023-07-19 17:22 | CON.PCM.HO_ITS ---
Assessment & Plan Assessment/Plan (1) Herniated nucleus pulposus, L4-5: PLAN: Plan #Disc disruption syndrome of L4-L5 * s/p posterior fusion of L4-L5. Today is POD 0 * management as per primary care spine surgery. * PT/OT On board. * fall precautions * #Type 2 diabetes mellitus * on metformin. ISS. Accuchecks ACHS * #Hyperlipidemia: on statin. DVT prophylaxis: as per primary service. Thank you for the courtesy of the consult. The hospitalist service will continue to follow patient with you. HPI Consult Data Date of Consult: 07/19/23 HPI Narrative Reason for Consultation: medical management HPI Narrative: JOCELINE FALCON, is a 33 M with a PMH as outlined who was admitted to the service of orthopedics for posterior fusion of L4-L5 due to disc disruption syndrome of L4-L5. Hospitalist service was consulted for medical management. Patient seen and examined after surgery. He complained of pain which was noted to be tender and also complained of numbness in both lower extremities since surgery. He also complained of some numbness in his first 3 fingers on the right hand. Review of systems is otherwise negative. Vitals in ED temp of 97.9F, UT of 89, BP of 138/71, RR of 16 and he was saturating at 99% on 2L of oxygen. [facility] Medical History Back pain Closed fracture of one or more phalanges of right foot Diabetes Dietary restriction Gastric reflux History of pain when walking Injury of back Leg cramps Lumbar strain Non-smoker Pain Restless legs Wears glasses Home Medications multivitamin 1 tab PO DAILY SUPPLEMENT 12/28/22 [History Last Taken Unknown] metformin 500 mg tablet 500 mg PO DAILY DIABETES 12/31/22 [History Last Taken 07/18/23] rosuvastatin 20 mg tablet 20 mg PO QHS CHOLESTEROL 02/11/23 [History Last Taken Unknown] Allergy/AdvReac Type Severity Reaction Status Date / Time nickel Allergy Intermediate Rash Verified 07/13/23 13:07 Milk Containing Products AdvReac Mild Nausea/Vom/ Verified 07/13/23 13:07 (Dairy) Diarrhea Surgical History Hx of oral surgery Social History household members: family Smoking Status: Never smoker alcohol intake: never ROS Review of Systems ROS Unobtainable: Denies due to encephalopathy Constitutional Constitutional: Denies anorexia, chills, fatigue, fever(s), malaise or weakness Eyes Eyes: Denies change in vision ENT HEENT: Denies dysphagia or headache(s) Cardiovascular Cardiovascular: Denies chest pain, dyspnea on exertion, edema, lightheadedness, orthopnea, paroxysmal nocturnal dyspnea, rapid heart rate or syncope Respiratory/Chest Respiratory/Chest: Denies cough, dyspnea, productive cough, shortness of breath at rest or shortness of breath with exertion Genitourinary Genitourinary: Denies burning urination Musculoskeletal Musculoskeletal: Denies back pain or joint pain Neurologic Neurologic: Reports numbness and tingling; Denies confusion, disequilibrium, dizziness, focal weakness or headache(s) Psychiatric Psychiatric: Denies anxiety Physical Exam Const alert, oriented x3, no apparent distress and average body habitus HEENT normocephalic, head/scalp atraumatic, hearing grossly normal bilaterally and moist oral mucous membranes Mouth: oral and palatal mucosa normal Eyes PERRL, EOMs intact bilaterally and conjunctivae normal Neck no lymphadenopathy, supple and no JVD Resp normal respiratory effort, no retractions, no use of accessory muscles and clear to auscultation bilaterally Cardio regular rate, regular rhythm, S1 normal heart sound, S2 normal heart sound and no murmurs GI normal to inspection, nondistended, normoactive bowel sounds, soft to palpation and non-tender GI Narrative: intact dressing over abdominal site on lower abdomen. Extremity normal to inspection, full ROM and no clubbing, cyanosis or edema Neuro oriented x3, CN's II-XII intact bilaterally, moves all extremities, no focal motor deficits and no sensory deficits noted Sensorium / Orientation: awake and alert Motor Exam: strength 5/5 throughout Psych affect normal Lab / Micro Data Labs: Laboratory Results - last 24 hr 07/19/23 05:59: POC Glucose 163 H 07/19/23 14:52: POC Glucose 185 H Imaging Radiology Impression Spine X-Ray 07/19/23 10:20 IMPRESSION: The localization instrument is seen anterior to the L4-L5 disc space level. Electronically Signed: Barrett Weber MD at 14:59 EDT , Spine X-Ray 07/19/23 11:25 IMPRESSION: Status post anterior fusion at the L4-L5 level with prosthetic disc placement. Electronically Signed: Barrett Weber MD at 15:00 EDT , Spine X-Ray 07/19/23 11:33 IMPRESSION: Status post anterior fusion at the L4-L5 level with prosthetic disc placement. The localization instrument is seen posterior to the L4-L5 level. Electronically Signed: Barrett Weber MD at 13:26 EDT , Charges/Coding Visit Charges Inpatient E&M: 70492 Subs Hosp L2
[2023-07-19] MEDS: metFORMIN HCl 500 MG Tablet PO (17:40)
[2023-07-19] MEDS: oxyCODONE 5 MG Tablet PO ×2 (18:53→22:49)
[2023-07-19] MEDS: Cefazolin 1 GM/50 ML BAG IV (20:17)
[2023-07-19] MEDS: Lactated Ringers 1,000 ML 100 ML IV (20:21)
[2023-07-19 22:50] LABS: Bedside Glucose 156 mg/dL (74-106)
[2023-07-20] VITALS (9 sets, daily range): BP systolic 90–121; BP diastolic 49–69; PULSE 75–103; RESP 16–18; TEMP 36.8–37.2; O2SAT 93–98
[2023-07-20] MEDS: Morphine 2 MG/ML Syringe IV ×2 (00:39→08:22)
[2023-07-20] MEDS: Cefazolin 1 GM/50 ML BAG IV (04:45)
[2023-07-20] MEDS: Lactated Ringers 1,000 ML 100 ML IV ×2 (04:48→15:55)
[2023-07-20] MEDS: Acetaminophen 500 MG Tablet 1000 MG PO ×3 (04:52→20:30)
[2023-07-20] MEDS: oxyCODONE 5 MG Tablet PO ×4 (06:44→20:29)
[2023-07-20 07:18] LABS: Bedside Glucose 126 mg/dL (74-106)
[2023-07-20] MEDS: Ensure Surgery 237 ML LIQUID PO ×2 (08:56→16:44)
[2023-07-20] MEDS: metFORMIN HCl 500 MG Tablet PO (08:57)
--- NOTE | 2023-07-20 09:37 | CASEMGMT ---
VINCENT OSORIO Assessment: Face to Face with pt for initial transition planning/care coordination assessment. VINCENT OSORIO introduced self and role at [facility], pt voices understanding and consents to assessment. Pt is A&O x4 and answers all questions appropriately at this time. Pt lying in bed in no distress with mother at bedside. Pt agreeable to assessment with mother present. Care providers, pharmacy, and demographics verified/updated. Admitting Dx: 360 lumbar fusion L4-5 PCP:Joe Specialists:cari Delacruz Pharmacy: [facility] Retail Insurance: [employer] Prescription Benefit: yes LNOK: Yousif Pepper, father; Elysia Pepper, mother Living Arrangements: Pt lives with brother in a 2 story home with 2 steps to enter. Pt reports he stays on the second level with 15 steps to get up to with a rail. He states he really can't stay on the main level temporarily. Pt reports being I in ADL's and denies concerns at home. Transportation: Pt drives self and denies concerns with transportation. Pt mother will transport pt until he can drive again. DME:BP cuff, BGM- pt only checks prn. Pt has access to a FWW if needed. HHC/SNF: Denies hx of Pt states no concerns with going home at time of dc. Pt states no further concerns/needs. CM to follow. Advised pt to ask CM if any further question/concerns/needs arise, voices understanding. Pt Goal: Home Plan: Home Fausto KAUR CM
[2023-07-20] MEDS: Insulin Lispro 100 UNIT/ML INSULN.PEN SC (11:35)
[2023-07-20 12:40] LABS: Bedside Glucose 164 mg/dL (74-106)
[2023-07-20] MEDS: SimETHICONE 80 MG Chewable Tablet PO (19:11)
[2023-07-20 19:26] LABS: Bedside Glucose 139 mg/dL (74-106)
[2023-07-20 23:34] LABS: Bedside Glucose 130 mg/dL (74-106)
[2023-07-21] VITALS (7 sets, daily range): BP systolic 120–151; BP diastolic 61–81; PULSE 89–99; RESP 16–18; TEMP 36.6–37.8; O2SAT 93–100
[2023-07-21] MEDS: Lactated Ringers 1,000 ML 100 ML IV ×2 (01:45→13:49)
[2023-07-21] MEDS: oxyCODONE 5 MG Tablet PO ×5 (02:43→20:16)
[2023-07-21] MEDS: Acetaminophen 500 MG Tablet 1000 MG PO ×3 (06:38→20:50)
[2023-07-21 07:05] LABS: Bedside Glucose 126 mg/dL (74-106)
[2023-07-21] MEDS: metFORMIN HCl 500 MG Tablet PO (08:54)
[2023-07-21] MEDS: SimETHICONE 80 MG Chewable Tablet PO ×3 (08:54→17:30)
[2023-07-21] MEDS: Ensure Surgery 237 ML LIQUID PO ×3 (08:57→16:19)
[2023-07-21] MEDS: Insulin Lispro 100 UNIT/ML INSULN.PEN SC (11:07)
[2023-07-21 11:52] LABS: Bedside Glucose 188 mg/dL (74-106)
[2023-07-21 16:58] LABS: Bedside Glucose 132 mg/dL (74-106)
[2023-07-21 22:32] LABS: Bedside Glucose 133 mg/dL (74-106)
[2023-07-22] MEDS: oxyCODONE 5 MG Tablet PO ×4 (02:17→14:38)
[2023-07-22 02:19] VITALS: BP 136/82; PULSE 99; RESP 16; TEMP 37.1; O2SAT 100
[2023-07-22] MEDS: Acetaminophen 500 MG Tablet 1000 MG PO ×2 (06:35→14:27)
[2023-07-22 07:12] LABS: Bedside Glucose 131 mg/dL (74-106)
--- NOTE | 2023-07-22 07:24 | PCM.HOSP.N ---
Hospitalist Note Patient has been very stable from a medical standpoint on his baseline medications of metformin. P.o. intake is fine we will discontinue IV fluids. Okay for discharge from medical standpoint. Will sign off please reconsult if needed.
[2023-07-22 08:00] VITALS: O2SAT 93
[2023-07-22] MEDS: metFORMIN HCl 500 MG Tablet PO (08:58)
[2023-07-22] MEDS: Ensure Surgery 237 ML LIQUID PO ×2 (08:59→11:38)
[2023-07-22] MEDS: SimETHICONE 80 MG Chewable Tablet PO ×2 (08:59→14:27)
[2023-07-22 09:05] VITALS: BP 119/70; PULSE 94; RESP 16; TEMP 36.6; O2SAT 96
--- NOTE | 2023-07-22 14:09 | DCINST_ITS ---
Discharge Instructions Activity May shower in (days): 2 Lifting Restrictions: 15# Dressing / Incision Remove Dressing in: 1 day Follow Up Care Test Results: Test results from this visit will be discussed in further detail at your follow- up appointment, if applicable. Discharge Plan Admission Admit Date/Time: 07/19/23 05:33 Primary Reason for Your Visit: back surgery Attending Provider: Belén Flores Primary Care Provider: London Diaz Consulting Providers: Sydni Farnsworth; Destin Delacruz Discharge Orders/Prescriptions Prescriptions: No Action multivitamin Tablet 1 tab PO DAILY metformin 500 mg tablet 500 mg PO DAILY rosuvastatin 20 mg tablet 20 mg PO QHS Referrals / Follow Up: London Diaz MD [Primary Care Provider] - Disposition Disposition (needs filled in before D/C Order can be placed): Home, Self Care
--- NOTE | 2023-07-22 14:11 | PCM.DC.SUM ---
Providers Date of Admission: 07/19/23 Primary Care Physician: Dr. London Diaz MD Attending Physician: This is Dr. Delacruz dictating discharge summary on . This patient was admitted on the seventh 3 days ago but underwent 360 degree fusion at the L4-5 level. Postoperatively he had a little bit of an ileus that is now resolving. His pain is much much better than it was at first. He has been up and walking around quite a bit. Neurologically he is intact. His dressings are dry. He was given directions regarding his activity when he gets home. He knows to remove the dressings tomorrow to start showering on Tuesday. We will send him home on Percocet which she is taking here in the hospital. He already has an appointment to see me on the . This is the end of discharge summary on . This is Dr. Delacruz dictating. Consultations 07/19/23 16:51 Consult: Hospitalist Routine Consulting Provider: Sydni Farnsworth Reason for Consult: Medical Management EMERGENT Consult: No MD Notified: Yes Date Notified: 07/19/23 Time Notified: 17:18 Method of Notification: Text Reason For Visit: 360 Lumbar Fusion L4-5 Diagnosis Discharge Diagnosis (1) Herniated nucleus pulposus, L4-5: Status: Acute Code(s): M51.26 - Other intervertebral disc displacement, lumbar region Medications at Discharge Home Medications multivitamin 1 tab PO DAILY SUPPLEMENT 12/28/22 metformin 500 mg tablet 500 mg PO DAILY DIABETES 12/31/22 rosuvastatin 20 mg tablet 20 mg PO QHS CHOLESTEROL 02/11/23 Weight / BMI Weight Weight: 218 lb 4.122 oz Body Mass Index (BMI) 31.2 ABG / Lab / Microbiology Data Laboratory: Laboratory Results - last 24 hr 07/21/23 16:16: POC Glucose 132 H 07/21/23 20:49: POC Glucose 133 H 07/22/23 06:49: POC Glucose 131 H Microbiology: Microbiology 07/08/23 07:14 Swab (Method) Nasal Screen MRSA/MSSA - Final D/C Instructions May shower in (days): 2 Meaningful Use Info Meaningful Use Meaningful Use Diagnoses (Choose all that apply): None applicable Ischemic Stroke Statin Dosing Therapy Reference: STATIN DOSE THERAPY REFERENCE: * Patients > 75 years receive moderate or high dose statin therapy. * Patients 75 years or YOUNGER should receive HIGH intensity statin dose unless contraindicated. You will be required to document reason for non-treatment if statin daily dose does not meet guidelines. HIGH DOSE STATIN THERAPY DAILY Atorvastatin > than or = to 40 mg Rosuvastatin > than or = to 20 mg Amlodipine + Atorvastatin > than or = to 2.5/40 mg Ezetimibe + Simvastatin 10/80 mg Simvastatin 80mg Discharge Plan Admission Admit Date/Time: 07/19/23 05:33 Primary Reason for Your Visit: back surgery Attending Provider: Belén Flores Primary Care Provider: London Diaz Consulting Providers: Sydni Farnsworth; Destin Delacruz Discharge Orders/Prescriptions Prescriptions: No Action multivitamin Tablet 1 tab PO DAILY metformin 500 mg tablet 500 mg PO DAILY rosuvastatin 20 mg tablet 20 mg PO QHS Referrals / Follow Up: London Diaz MD [Primary Care Provider] - Disposition Disposition (needs filled in before D/C Order can be placed): Home, Self Care
[2023-07-22 14:49] VITALS: BP 123/78; PULSE 94; RESP 16; TEMP 37.2; O2SAT 97
[2023-07-22 16:30] LABS: Bedside Glucose 136 mg/dL (74-106)
== END 2023-07-22 16:02 | disposition home or self-care (01) | DRG 455 ==
LOC: ACINP 05:34 → MS3 14:49
PROVIDERS: Anesthesiology; Admitting Provider Orthopaedic Surgery; PCP Family Medicine; Referring Provider Orthopaedic Surgery; Visit Provider Internal Medicine
PROC: 0SG00A0 Fusion of Lumbar Vertebral Joint with Interbody Fusion Device, Anterior Approach, Anterior Column, Open Approach (ICD-10-PCS; principal; 2023-07-19 07:00)
DX: M51.26 Other intervertebral disc displacement, lumbar region (principal); E11.9 Type 2 diabetes mellitus without complications; E78.5 Hyperlipidemia, unspecified; Z79.84 Long term (current) use of oral hypoglycemic drugs
CPT/HCPCS: 36415; 72020; 82962; 83735; 86703; 86706; 86708; 86803; 87081; 88304; 93005; 94668; 97116; 97162; 97530; 99252; A4648; C1713; J7120; G0463; J2405; J3475

== ENCOUNTER 2023-08-09 19:10 | Emergency (ER) | payer OTHER, SELFPAY ==
[2023-08-09 19:10] VITALS: BP 129/84; PULSE 89; RESP 16; TEMP 36.4; O2SAT 98; BMI 30.4
[2023-08-09 20:31] LABS: Absolute Lymphocyte Count 2.74 X10^3/uL (0.83-4.51); Absolute Neutrophil Count 6.1 X10^3/uL (2.0-7.7); Basophil# 0.05 X10^3/uL; Basophil% 0.5 % (0-1); Eosinophil# 0.13 X10^3/uL; Eosinophils% 1.4 % (0-5); Hematocrit 45.3 % (40-54); Hemoglobin 14.4 g/dL (13.0-16.5); Lymphocyte # 2.74 X10^3/ul (0.83-4.51); Lymphocyte % 28.6 % (19-41); Mean Corp Hgb Conc 31.8 g/dL (32-36); Mean Corpuscular Hgb 27.9 pg (27.0-32.0); Mean Corpuscular Volume 87.6 fL (80-94); Mean Platelet Vol. 10.2 fl (6.2-12.0); Monocyte# 0.58 X10^3/uL; Monocyte% 6.1 % (0-10); NRBC Flagged by Analyzer 0 % (0-5); Neutrophil # 6.06 X10^3/uL (2.7-7.7); Neutrophil % 63.2 % (47-70); Platelet Count 360 K/mm3 (150-450); RBC Distribution Width CV 12.9 % (11.6-14.6); RBC Distribution Width SD 41.4 fl (35.1-43.9); Red Blood Count 5.17 M/mm3 (4.6-6.2); White Blood Count 9.6 K/mm3 (4.4-11.0)
[2023-08-09 20:47] LABS: ALB/GLOB Ratio 1.2 RATIO (0.9-2.4); AST(SGOT) 12 U/L (15-37); Alanine Aminotransfer ALT/SGPT 25 U/L (16-61); Albumin, Serum 4.1 g/dL (3.2-5.0); Alkaline Phosphatase 79 U/L (45-117); Anion Gap 8 (5-15); BUN 15 mg/dL (7-18); BUN/Creat Ratio 20.2 RATIO (10-20); Calcium,Total 9.2 mg/dL (8.5-10.1); Chloride 106 mmol/L (98-107); Creatinine, Serum 0.74 mg/dL (0.70-1.30); EST Glomerular Filtration Rate 129 mL/min (>60); Est Glom Filt Rate - Afr Amer 156 mL/min (>60); Estimated Creatinine Clearance 166.97 ml/min; Globulin 3.3 g/dL (2.2-4.2); Glucose 128 mg/dL (74-106); Potassium 3.5 mmol/L (3.5-5.1); Protein, Total 7.4 g/dL (6.4-8.2); Sodium Level 140 mmol/L (136-145)
[2023-08-09 21:02] LABS: Red Blood Cells-Urine 0 SEEN /hpf (0-5); Squamous Epithelial Cells - UA 0 SEEN /hpf (0-5)
[2023-08-09 21:03] LABS: Color, Urine Yellow (Yellow); Glucose, Dipstick Normal (Normal); Ketone-Dipstick Negative (Negative); Leukocyte Esterase-Dipstick 25 /ul (Negative); Nitrite-Dipstick Negative (Negative); Occult Blood-Urine Negative /ul (Negative); Protein-Dipstick Negative (Negative); Urine Bilirubin Dipstick Negative (Negative); Urine Clarity Clear (Clear); Urine Urobilinogen Normal (Normal)
--- NOTE | 2023-08-09 21:03 | EDS_ITS ---
HPI HPI - GI History of Present Illness Chief Complaint: Abd Pain Narrative Narrative: 33-year-old male presenting with abdominal pain. He states this around his incision site in the left side of his abdomen. He states it had been feeling better since his surgery 07 18. He had 360 fusion at L4-L5. This was 07/19/2023. Patient states initially had some pain that radiated to his testicle but was told this was likely uncooperative. He was resolved. He had been doing well until he sat up today and noticed pain over the incision site. It did not open up. He feels like there is pressure building in the area. He has a return of the radiation to the inguinal area. Patient denies nausea, vomiting, diarrhea. Denies fever or chills. Denies urinary complaints. PFSH PFSH Medical History Degenerative disc disease Wears glasses Diabetes Restless legs Injury of back Back pain Dietary restriction Gastric reflux Non-smoker Leg cramps History of pain when walking Pain Closed fracture of one or more phalanges of right foot Lumbar strain Home Medications ?Medication ?Instructions ?Recorded ?Last Taken ?Type metformin 500 mg tablet 500 mg PO DAILY DIABETES 12/31/22 07/18/23 History rosuvastatin 20 mg tablet 20 mg PO QHS CHOLESTEROL 02/11/23 Unknown History Allergy/AdvReac Type Severity Reaction Status Date / Time nickel Allergy Intermediate Rash Verified 08/09/23 19:11 Milk Containing Products AdvReac Mild Nausea/Vom/ Verified 08/09/23 19:11 (Dairy) Diarrhea Surgical History Hx of oral surgery Social History household members: family Smoking Status: Never smoker alcohol intake: never ROS ROS ED Constitutional Constitutional ED: Denies chills or fever(s) ENT ENT ED: Denies rhinorrhea Cardiovascular Cardiovascular: Denies chest pain or palpitations Respiratory/Chest Respiratory/Chest: Denies cough or dyspnea Gastrointestinal Gastrointestinal: Reports abdominal pain; Denies constipation, diarrhea, melena or nausea Genitourinary Genitourinary ED: Denies dysuria, hematuria, testicular mass or testicular swelling Musculoskeletal Musculoskeletal: Denies arthralgias Integumentary Denies abscess Neurologic Neurologic: Denies headache(s) or paresthesias Psychiatric Psychiatric: Denies anxiety or depression EXAM Physical Exam Const Vital Signs: 08/09/23 19:10 08/09/23 22:00 Temperature 97.6 F L Temperature Source Temporal Pulse Rate 89 69 Respiratory Rate 16 16 Blood Pressure 129/84 H 122/80 H Blood Pressure Mean 99 94 Pulse Ox 98 98 Oxygen Delivery Method Room Air Room Air Positive well nourished General Appearance ED: NAD HEENT Reports TM's clear and moist mucous membranes Tympanic Membrane ED: Yes TM's clear Eyes PERRL and EOMs intact bilaterally Resp normal respiratory effort and clear to auscultation bilaterally Cardio regular rate and regular rhythm GI GI Narrative: Incision site clean, dry, intact. No drainage. No dehiscence. There does appear to be some tenderness around the incision site. I do not feel any hernia or fluctuance. Scrotum: testes descended bilaterally and cremasteric reflex present Testes: testicular lie normal; Negative for testicular swelling, testicular tenderness, testicular mass or blue dot sign MDM MDM MDM Narrative Medical decision making narrative: 33-year-old male presenting with abdominal pain concerned that something wrong with his incision although it is closed and intact. He has tenderness around the area. Differential includes postoperative infection, hematoma, constipation, muscle strain. CBC will be obtained to assess white blood cell count, hemoglobin complaints. CMP to assess liver function, renal function, electrolytes, glucose. Patient declines analgesia. I will obtain a CT of the abdomen pelvis. CBC shows normal 6. Hemoglobin 14.4. Platelets 360. Renal function and electrolytes are normal. LFTs are normal. Urinalysis negative for infection. CT of the abdomen pelvis with IV contrast shows nonspecific fluid collection which may be seroma around the incision site. Also possible rectus muscle swelling/hematoma in the site. Discussed with Dr. Delacruz who felt the patient could go home. He also recommended that he make a follow-up appoint with Dr. Dominguez because Dr. Dominguez did the approach from the anterior in the closure. Afternoon we will try to get him in the office this week for follow- up. Impression: 1. Postoperative wound check 2. Abdominal pain 3. Seroma Lab Data Labs: Laboratory Results - last 24 hr 08/09/23 08/09/23 19:38 20:56 WBC 9.6 RBC 5.17 Hgb 14.4 Hct 45.3 MCV 87.6 MCH 27.9 MCHC 31.8 L RDW Std Deviation 41.4 RDW Coeff of Porfirio 12.9 Plt Count 360 MPV 10.2 Immature Gran % (Auto) 0.200 Neut % (Auto) 63.2 Lymph % (Auto) 28.6 Taliaferro % (Auto) 6.1 Eos % (Auto) 1.4 Baso % (Auto) 0.5 Absolute Neuts (auto) 6.1 Absolute Lymphs (auto) 2.74 Nucleated RBC % 0 Sodium 140 Potassium 3.5 Chloride 106 Carbon Dioxide 26.0 Anion Gap 8 BUN 15 Creatinine 0.74 Estim Creat Clear Calc 166.97 Est GFR (MDRD) Af Amer 156 Est GFR (MDRD) Non-Af 129 BUN/Creatinine Ratio 20.2 H Glucose 128 H Calcium 9.2 Total Bilirubin 0.60 AST 12 L ALT 25 Alkaline Phosphatase 79 Total Protein 7.4 Albumin 4.1 Globulin 3.3 Albumin/Globulin Ratio 1.2 Urine Color Yellow Urine Clarity Clear Urine pH 6.0 Ur Specific [place]loe 1.020 Urine Protein Negative Urine Glucose (UA) Normal Urine Ketones Negative Urine Occult Blood Negative Urine Nitrite Negative Urine Bilirubin Negative Urine Urobilinogen Normal Ur Leukocyte Esterase 25 H Urine RBC 0 SEEN Urine WBC 0-5 SEEN Ur Squamous Epith Cells 0 SEEN Urine Bacteria RARE Urine Mucus 2+ Radiography Diagnostic Testing: Clinical Impression(s) from Imaging Studies Abdomen/Pelvis CT 08/09/23 21:06 IMPRESSION: Left lower quadrant plus procedure change as above without significant focal organized fluid to definitely suggest abscess. Suggestion of small left rectus muscle soft tissue swelling/hematoma. Skin thickening suggesting mild cellulitis. Electronically Signed: Avelino Flowers MD at 22:16 EDT , Discharge Plan Triage Chief Complaint: Abd Pain ED Provider: Tunde Ortega Dx/Rx/DC Orders Instructions: ED Post Op Wound Check, Pain Prescriptions: No Action metformin 500 mg tablet 500 mg PO DAILY rosuvastatin 20 mg tablet 20 mg PO QHS Primary Care Provider: London Diaz Referrals: Kevin Dominguez MD [Med Staff - Active Staff] - 3-5 Days Destin Delacruz DO [Med Staff - Active Staff] - 3-5 Days London Diaz MD [Primary Care Provider] - Print Language: Persian Disposition Disposition: Home, Self Care
--- NOTE | 2023-08-09 21:06 | CT_ITS ---
INDICATION: PAIN COMPARISON: None. IV Contrast dosage and agent: 100 cc [id number]-370 IV. A radiation dose optimization technique was used for this scan. RADIATION DOSAGE (If Supplied By Facility): CTDIvol/DLP = ( 16.09 ) / ( 1208.33 ) mGy/mGycm FINDINGS: Contrast enhanced serial CT axial images through the abdomen and pelvis with coronal and sagittal reformatted series. PANCREAS: No peripancreatic fat stranding. SPLEEN: Tiny posterior hypoattenuating splenic lesion, too small to characterize further, likely small hemangioma. ABDOMINAL WALL/MESENTERY: Left lower quadrant anterior abdominal wall incision site with underlying hazy fat stranding and trace poorly organized fluid, likely small seroma. Underlying mild thickening of the left rectus muscle at this level. Trace fat stranding and streaky fluid of the left lower quadrant mesentery. No significant focal organized fluid collection to suggest abscess. Mild associated skin thickening at this level. BOWEL: No dilated bowel loops. No free air. GALLBLADDER: No pericholecystic fat stranding. LIVER/STOMACH: No obvious abnormality. URINARY COLLECTING SYSTEM/ KIDNEYS: No obstructing ureteral calculus. No significant renal parenchymal abnormality. APPENDIX: Normal caliber appendix. LUNG BASES: Unremarkable. BONES: L4-L5 level orthopedic hardware without obvious hardware complication. CT/Abdomen/Pelvis W IV Cont ONLY IMPRESSION: Left lower quadrant plus procedure change as above without significant focal organized fluid to definitely suggest abscess. Suggestion of small left rectus muscle soft tissue swelling/hematoma. Skin thickening suggesting mild cellulitis. Electronically Signed: Avelino Flowers MD at 22:16 EDT ,
[2023-08-09 21:31] LABS: Bacteria RARE /hpf (None Seen); Mucous, Urine 2+ /hpf (<or=2+); White Blood Cells 0-5 SEEN /hpf (0-5)
[2023-08-09 22:00] VITALS: BP 122/80; PULSE 69; RESP 16; O2SAT 98
[2023-08-09 23:59] VITALS: BP 134/71; PULSE 79; RESP 15; TEMP 36.6; O2SAT 97
== END 2023-08-10 00:01 | disposition home or self-care (01) ==
PROVIDERS: Emergency Provider Student in an Organized Health Care Education/Training Program; PCP Family Medicine; Visit Provider Student in an Organized Health Care Education/Training Program
DX: Z47.89 Encounter for other orthopedic aftercare (principal); E11.9 Type 2 diabetes mellitus without complications; R10.9 Unspecified abdominal pain; Z79.84 Long term (current) use of oral hypoglycemic drugs; K21.9 Gastro-esophageal reflux disease without esophagitis
CPT/HCPCS: 74177; 80053; 81001; 85025; 99282; J7030; Q9967; A4216

== ENCOUNTER → 2023-11-09 | Outpatient (CLI) | payer OTHER, SELFPAY ==
[2023-11-09 13:26] LABS: Anion Gap 6 (5-15); BUN 26 mg/dL (7-18); BUN/Creat Ratio 28.4 RATIO (10-20); Calcium,Total 9.4 mg/dL (8.5-10.1); Chloride 104 mmol/L (98-107); Cholesterol 236 mg/dL (200); Creatinine, Serum 0.92 mg/dL (0.70-1.30); EST Glomerular Filtration Rate 102 mL/min (>60); Est Glom Filt Rate - Afr Amer 123 mL/min (>60); Glucose 124 mg/dL (74-106); High Density Lipoprotein 42 mg/dL; Potassium 5.2 mmol/L (3.5-5.1); Sodium Level 136 mmol/L (136-145); Triglycerides 181 mg/dL; Very Low Density Lipoprotein 36 mg/dL (5-40)
== END | disposition home or self-care (01) ==
LOC: MFPLAB 09:56
PROVIDERS: PCP Family Medicine; Visit Provider Family Medicine
DX: Z00.00 Encounter for general adult medical examination without abnormal findings (principal)
CPT/HCPCS: 36415; 80048; 80061

== ENCOUNTER → 2024-05-09 | Outpatient (CLI) | payer OTHER, SELFPAY ==
[2024-05-09 12:51] LABS: AST(SGOT) 23 U/L (<=37); Alanine Aminotransfer ALT/SGPT 34 U/L (<=46); Albumin, Serum 4.8 g/dL (3.5-5.0); Alkaline Phosphatase 64 U/L (40-129); Anion Gap 13 (5-15); BUN 13 mg/dL (4-19); BUN/Creat Ratio 14.9 RATIO (10-20); Calcium 9.4 mg/dL (7.6-11.0); Carbon Dioxide 24.8 mmol/L (22.0-29.0); Chloride 100 mmol/L (96-108); Cholesterol 196 mg/dL (<=200); Creatinine, Serum 0.9 mg/dL (0.8-1.3); EST Glomerular Filtration Rate 117 (>60); Globulin 2.4 g/dL (2.2-4.2); Glucose 133 mg/dL (70-99); High Density Lipoprotein 36 mg/dL; Low Density Lipoprotein Calc. 134 mg/dL; Potassium 4.2 mmol/L (3.3-5.1); Protein, Total 7.1 g/dL (5.9-8.4); Sodium Level 138 mmol/L (133-145); Total Bilirubin 0.85 mg/dL (0.00-1.30); Triglycerides 129 mg/dL; Very Low Density Lipoprotein 26 mg/dL (5-40); cholesterol:hdl ratio screen 5.38
== END | disposition home or self-care (01) ==
LOC: MFPLAB 10:06
PROVIDERS: PCP Family Medicine; Referring Provider Family Medicine; Visit Provider Family Medicine
DX: E11.69 Type 2 diabetes mellitus with other specified complication (principal)
CPT/HCPCS: 36415; 80053; 80061